=== PATIENT | male | born 1995 | race Caucasian/White ===

== ENCOUNTER 2017-08-03 12:39 | Emergency (ER) | payer SELFPAY ==
[2017-08-03 14:31] VITALS: BP 126/47
--- NOTE | 2017-08-03 15:00 | UC ---
Binu Tucker Elizabeth, scribed for Minda Gant MD on 08/03/17 at 1450 . Minor Trauma HPI - HPI Summary HPI Summary: This patient is a 21 year old M presenting to [facility] with a chief complaint of difficulty breathing through his nose since 7 days ago. The patient reports that 7 days ago he was hit in the nose by someones elbow while playing basketball. The patient reports that immediately after the trauma occurred he had epistaxis and his nose was swollen. No LOC. No blood from ears, mouth, No broken teeth. He reports that in the last 7 days the swelling has gone down significantly and he thinks that he broke his nose. The patient rates the pain 5 /10 in severity. Symptoms aggravated by nothing. Symptoms alleviated Advil - has not taken in > 24hours. No anticoagulation. Patient reports an episode of vomiting, headache, and dizziness a few days ago but these symptoms have resolved. Pt with h/o similar injury. Patient denies taking any medications. - History of Current Complaint Chief Complaint: UCTrauma Stated Complaint: NOSE INJURY Time Seen by Provider: 08/03/17 14:37 Hx Obtained From: Patient Onset/Duration: Sudden Onset, Lasting Days - 7 days, Still Present Onset Of Pain: Post Accident Severity Initially: Mild Severity Currently: Mild Pain Intensity: 5 Pain Scale Used: 0-10 Numeric Mechanism Of Injury: Direct Blow - elbow to the face Aggravating Factor(s): Nothing Alleviating Factor(s): Nothing Associated Signs And Symptoms: Positive: Swelling - of nose, Other: - epistaxis , vomiting, headache, dizziness - Allergies/Home Medications Allergies/Adverse Reactions: Allergies Allergy/AdvReac Type Severity Reaction Status Date / Time No Known Allergies Allergy Verified 08/03/17 14:30 Home Medications: Home Medications Ibuprofen TAB* [Advil TAB*] 400 mg PO Q6H PRN 08/03/17 [History Confirmed ] PMH/Surg Hx/FS Hx/Imm Hx Previously Healthy: Yes - Surgical History Surgical History: None - Family History Known Family History: Positive: None - patient denies RHx - Social History Occupation: Unemployed Lives: With Family - visiting from out of town Alcohol Use: Occasionally Substance Use Type: None Smoking Status (MU): Never Smoked Tobacco Review of Systems Skin: Bruising - to face ENT: Epistaxis, Dental Pain Gastrointestinal: Vomiting Musculoskeletal: Other: - swelling to nose and face Neurological: Headache, Other - positive dizziness All Other Systems Reviewed And Are Negative: Yes Physical Exam - Summary Physical Exam Summary: Vital Signs Reviewed: Yes A+Ox3, no distress, pleaseant Eyes: Conjunctiva Clear, SURINDER, EOM intact and full No pain or crepitus with palpation of orbits. Pt with resolving ecchymosis under right eye ENT: TM x 2 clear - no hemotymp, Pt with edema b/l nasal passages - no noted septal hematoma, mild discomfort with palpation nasal bridge. mmmoist neck: supple Respiratory: Positive: No respiratory distress, No accessory muscle use Cardiovascular: skin color reflect adequate perfusion Musculoskeletal Exam: Full AROM no spinous process pain. Neurological: Positive: Alert, ambulatory without difficulty Psychological: Positive: Normal Response To Family Skin: Positive: no rash, no ecchymosis Triage Information Reviewed: Yes Vital Signs: Initial Vital Signs Temp 98.5 F 08/03/17 14:27 Pulse 61 08/03/17 14:27 Resp 16 08/03/17 14:27 BP 126/47 08/03/17 14:27 Pulse Ox 100 08/03/17 14:27 Diagnostics - Radiology CT Brain Xray Interpretation: No Acute Changes - IMPRESSION: NEGATIVE EXAMINATION. Dr. Gant has reviewed this report. Radiology Interpretation Completed By: Radiologist CT Orbit Xray Interpretation: Positive (See Comments) - Patient Name: SANDRA SCHWARTZ Medical Record#: [id number] Ordering Physician: Minda Gant MD Acct.#: [id number] : 1995 Age: 21 Sex: M Location: [facility] Exam Date: 08/03/17 1445 ADM Status: [facility] ER Order Information: CT ORBIT W/O Accession Number: [id number] CPT: 80084 Indication: Facial trauma, headaches. CT of the orbits was obtained in the axial plane. Sagittal and coronal reconstructed images were obtained. The frontal bones demonstrate no fracture. The frontal sinuses are unremarkable. The orbits are intact without fracture. No evidence of intraconal or extraconal masses are noted. There appears to be a minimally displaced fracture of the right nasal tip. Zygomatic arch is otherwise unremarkable. Maxilla and pterygoid plates are unremarkable. The visualized mandible and cervical spine are unremarkable. IMPRESSION: Nondisplaced fracture of the right anterior nasal tip. No intraconal or extraconal masses are noted. < Electronically signed by Laquita Kebede MD in [place]> 08/03/17 1520 Dictated By: Laquita Kebede MD Dictated Date/Time: 08/03/17 1520 Transcribed Date/Time: 08/03/17 1505 Copy to: CC:Minda Gant MD; Hema Lux MD Imaging - [facility] Imaging - [place] [facility] [place] [facility] - [facility] [address] [address] ph ([phone]) ph ) ph ([phone]) Patient Name: SANDRA SCHWARTZ Medical Record#: [id number] Ordering Physician: Minda Gant MD Acct.#: [id number] : 1995 Age: 21 Sex: M Location: URGENT CARE - [facility] Exam Date: 08/03/17 1445 ADM Status: REG ER Order Information: CT ORBIT W/O Accession Number: [id number] CPT: 83973 Indication: Facial trauma, headaches. CT of the orbits was obtained in the axial plane. Sagittal and coronal reconstructed images were obtained. The frontal bones demonstrate no fracture. The frontal sinuses are unremarkable. The orbits are intact without fracture. No evidence of intraconal or extraconal masses are noted. There appears to be a minimally displaced fracture of the right nasal tip. Zygomatic arch is otherwise unremarkable. Maxilla and pterygoid plates are unremarkable. The visualized mandible and cervical spine are unremarkable. IMPRESSION: Nondisplaced fracture of the right anterior nasal tip. No intraconal or extraconal masses are noted. Dr. Gant has reviewed this report. 1 of 1 Radiology Interpretation Completed By: Radiologist Re-Evaluation - Re-Evaluation First Eval Re-Evaluation Time: 15:28 Comment: reviewed imaging with pt. recommend motrin/apap. ice. saline nasal spray. will give ENT contact although pt aware is minimally displaced and likely no intervention but may call Minor Trauma Course/Dx - Course Course Of Treatment: Pt presents concerned for nasal fracture following a facial injury 1 week ago while playing basketball. Pt with resolving ecchymosis under right eye - no crepitus. Pt had 1 epsidose of dizziness, nausea and headache which has resolved. No analgesia today. Will check CT head, orbits. Pt declined analgesia. If sinus fx - abx. pt comfortable and in agreement with plan - Differential Dx/Diagnosis Provider Diagnoses: nasal fracture. facial contusion. closed head injury Discharge - Sign-Out/Discharge Documenting (check all that apply): Discharge/Admit/Transfer - Discharge Plan Condition: Stable Disposition: HOME Discharge Disposition Comment: discharge home Patient Education Materials: Nasal Fracture (ED), Head Injury (ED), Facial Contusion (ED) Referrals: Hema Lux MD [Primary Care Provider] - Roger Guerrero MD [Medical Doctor] - (as needed ) Additional Instructions: - Stay well hydrated. Drink plenty of non alcoholic, non caffeinated beverages. - Okay to alternate ibuprofen (Advil, Motrin) and Tylenol product every 3 hours for pain,. Take with food. Do NOT take for more than 4-5 days. - Okay to apply ice (Wrapped in a towel) 20 minutes at a time, 2-3 times a day - You have been given the contact information for ENT - okay to call if you would like to schedule a follow-up appointment Contact your doctor or return with questions or concerns - Billing Disposition and Condition Condition: STABLE Disposition: Home The documentation as recorded by the Binu rivas Elizabeth accurately reflects the service I personally performed and the decisions made by , Minda Gant MD.
--- NOTE | 2017-08-03 15:09 | RAD ---
INDICATION: Injury while playing basketball. COMPARISON: CT brain November 19, 2008 TECHNIQUE: Noncontrast axial source images were acquired from the skull base to the vertex. FINDINGS: Ventricles/sulci: The ventricles and cisterns are normal in size and configuration for age. Brain parenchyma: There is no focal parenchymal finding, evidence of intracranial mass, or intracranial mass effect. Intracranial hemorrhage:None. Extra-axial spaces: There are no abnormal extra axial fluid collections or evidence of extra-axial mass. Calvarium: There is no calvarial fracture or other calvarial abnormality. Scalp: There is no evidence of scalp or extracalvarial soft tissue abnormality. Paranasal sinuses/mastoid: The paranasal sinuses and mastoid air cells are clear. Other: None. IMPRESSION: NEGATIVE EXAMINATION
--- NOTE | 2017-08-03 15:23 | RAD ---
Indication: Facial trauma, headaches. CT of the orbits was obtained in the axial plane. Sagittal and coronal reconstructed images were obtained. The frontal bones demonstrate no fracture. The frontal sinuses are unremarkable. The orbits are intact without fracture. No evidence of intraconal or extraconal masses are noted. There appears to be a minimally displaced fracture of the right nasal tip. Zygomatic arch is otherwise unremarkable. Maxilla and pterygoid plates are unremarkable. The visualized mandible and cervical spine are unremarkable. IMPRESSION: Nondisplaced fracture of the right anterior nasal tip. No intraconal or extraconal masses are noted.
== END 2017-08-03 15:47 | disposition home or self-care (01) ==
LOC: UCEAST 12:39
DX: S02.2XXA Fracture of nasal bones, initial encounter for closed fracture (principal); S00.83XA Contusion of other part of head, initial encounter; S09.90XA Unspecified injury of head, initial encounter; W50.0XXA Accidental hit or strike by another person, initial encounter; Y93.67 Activity, basketball; Y92.89 Other specified places as the place of occurrence of the external cause
CPT/HCPCS: 70450; 70480; 99201; G0463